=== PATIENT | female | born 1990 | race Caucasian/White ===

== ENCOUNTER 2024-03-29 12:39 | Emergency (ER) | payer MEDICAID, SELFPAY ==
[2024-03-29 13:01] VITALS: BP 112/64; PULSE 100; RESP 17; TEMP 36.9; O2SAT 98; BMI 20.9
--- NOTE | 2024-03-29 13:06 | ECG_ITS ---
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
== END 2024-03-29 14:56 | disposition left against medical advice (07) ==
PROVIDERS: Emergency Provider Family Medicine; PCP Family Medicine
DX: Z53.21 Procedure and treatment not carried out due to patient leaving prior to being seen by health care provider (principal)
CPT/HCPCS: 93005